=== PATIENT | male | born 1975 | race American Indian/Alaskan Native ===

== ENCOUNTER 2018-12-23 12:28 | Emergency (ER) | payer OTHER ==
[2018-12-23] MEDS ORDERED: hydrALAZINE 20 MG/1 ML INJ IV ONE (14:06)
--- NOTE | 2018-12-23 14:07 | Emergency Department Report ---
ED General Adult HPI - General Chief complaint: High BP Stated complaint: BP HIGH Time Seen by Provider: 12/23/18 14:06 Source: patient Mode of arrival: Ambulatory Limitations: No Limitations - History of Present Illness Initial comments: 43 yo AA male comes to ER today p getting a wellness exam for insurance today- because his BP is elevated. He is off his meds due to not having MD. At one time he was on losartan but when drug recalled his MD took him off it. Then he was lost to follow up with PCP. Pt has cardiology appnt on Wednesday. Denies cp, sob or headache. He is here with assistance of his . He is also off his DM meds. labs noted as ordered in triage. -: Gradual Treatments Prior to Arrival: none - Related Data Previous Rx's Medication Instructions Recorded Last Taken Type Glimepiride [Amaryl] 4 mg PO QDDIAB #30 tablet 09/30/15 Unknown Rx Insulin Glargine,Hum.rec.anlog 15 units SQ QHS #1 pen 09/30/15 Unknown Rx [Lantus Solostar] Linagliptin [Tradjenta] 5 mg PO QDAY #30 tablet 09/30/15 Unknown Rx Pen Needle, Diabetic [Pen Needle] 1 each MC DAILY #30 dis.needle 09/30/15 Unknown Rx metFORMIN XR [Glucophage XR] 1,000 mg PO QDDIAB #60 tablet 09/30/15 Unknown Rx hydroCHLOROthiazide [HCTZ] 25 mg PO DAILY #30 tablet 12/23/18 Unknown Rx Allergies Allergy/AdvReac Type Severity Reaction Status Date / Time No Known Allergies Allergy Unverified 09/27/15 12:50 ED Review of Systems ROS: Stated complaint: BP HIGH Other details as noted in HPI Comment: All other systems reviewed and negative ED Past Medical Hx - Past Medical History Previous Medical History?: Yes Hx Hypertension: Yes Hx CVA: No Hx Heart Attack/AMI: No Hx Congestive Heart Failure: No Hx Diabetes: Yes (Newly diagnose) Hx Deep Vein Thrombosis: No Hx Pulmonary Embolism: No Hx GERD: No Hx Liver Disease: No Hx Renal Disease: No Hx of Cancer: No Hx Sickle Cell Disease: No Hx Arthritis: No Hx Headaches / Migraines: No Hx Seizures: No Hx Kidney Stones: No Hx Psychiatric Treatment: No Hx Asthma: No Hx COPD: No Hx Tuberculosis: No Hx Dementia: No Hx HIV: No - Surgical History Past Surgical History?: No - Family History Family history: no significant - Social History Smoking Status: Never Smoker Substance Use Type: None - Medications Home Medications: Home Medications Medication Instructions Recorded Confirmed Last Taken Type Glimepiride [Amaryl] 4 mg PO QDDIAB #30 tablet 09/30/15 Unknown Rx Insulin Glargine,Hum.rec.anlog 15 units SQ QHS #1 pen 09/30/15 Unknown Rx [Lantus Solostar] Linagliptin [Tradjenta] 5 mg PO QDAY #30 tablet 09/30/15 Unknown Rx Pen Needle, Diabetic [Pen Needle] 1 each MC DAILY #30 dis.needle 09/30/15 Unknown Rx metFORMIN XR [Glucophage XR] 1,000 mg PO QDDIAB #60 tablet 09/30/15 Unknown Rx hydroCHLOROthiazide [HCTZ] 25 mg PO DAILY #30 tablet 12/23/18 Unknown Rx ED Physical Exam - General Limitations: No Limitations General appearance: alert, in no apparent distress - Head Head exam: Present: atraumatic, normocephalic - Eye Eye exam: Present: normal appearance - ENT ENT exam: Present: mucous membranes moist - Neck Neck exam: Present: normal inspection - Respiratory Respiratory exam: Present: normal lung sounds bilaterally. Absent: respiratory distress - Cardiovascular Cardiovascular Exam: Present: regular rate, normal rhythm. Absent: systolic murmur, diastolic murmur, rubs, gallop - GI/Abdominal GI/Abdominal exam: Present: soft, normal bowel sounds - Rectal Rectal exam: Present: deferred - Extremities Exam Extremities exam: Present: normal inspection - Back Exam Back exam: Present: normal inspection - Neurological Exam Neurological exam: Present: alert, oriented X3 - Psychiatric Psychiatric exam: Present: normal affect, normal mood - Skin Skin exam: Present: warm, dry, intact, normal color. Absent: rash ED Course Vital Signs 12/23/18 12/23/18 12/23/18 12:56 14:26 14:29 Temperature 98.7 F Pulse Rate 86 86 83 Respiratory 18 18 Rate Blood Pressure 236/140 200/104 O2 Sat by Pulse 100 95 Oximetry 12/23/18 12/23/18 12/23/18 14:30 14:46 15:00 Temperature Pulse Rate 86 90 92 H Respiratory 14 17 22 Rate Blood Pressure 167/93 188/85 O2 Sat by Pulse 94 95 95 Oximetry 12/23/18 12/23/18 12/23/18 15:16 15:30 16:00 Temperature Pulse Rate Respiratory Rate Blood Pressure 158/80 158/80 164/82 O2 Sat by Pulse 94 93 92 Oximetry 12/23/18 12/23/18 12/23/18 16:30 17:00 17:53 Temperature Pulse Rate Respiratory Rate Blood Pressure 172/106 160/85 202/110 O2 Sat by Pulse 95 92 Oximetry ED Medical Decision Making - Lab Data Result diagrams: 12/23/18 14:55 12/23/18 14:55 - EKG Data EKG shows normal: sinus rhythm Rate: normal - EKG Data Interpretation: no acute changes - Radiology Data Radiology results: report reviewed, image reviewed - Medical Decision Making Labs 12/23/18 12/23/18 12/23/18 14:55 14:55 14:55 WBC 6.9 RBC 5.59 H Hgb 16.2 H Hct 47.6 H MCV 85 MCH 29 MCHC 34 RDW 14.6 Plt Count 210 Lymph % (Auto) 37.3 H [place] % (Auto) 8.9 H Eos % (Auto) 1.0 Baso % (Auto) 0.5 Lymph # 2.6 [place] # 0.6 Eos # 0.1 Baso # 0.0 Seg Neutrophils % 52.3 Seg Neutrophils # 3.6 D-Dimer 320.17 H Sodium 144 Potassium 4.0 Chloride 105.2 Carbon Dioxide 23 Anion Gap 20 BUN 15 Creatinine 1.2 Estimated GFR > 60 BUN/Creatinine Ratio 13 Glucose 94 Calcium 9.3 Total Bilirubin 0.80 AST 42 H ALT 42 Alkaline Phosphatase 107 Troponin T < 0.010 Total Protein 7.5 Albumin 3.8 L Albumin/Globulin Ratio 1.0 Vital Signs 12/23/18 12/23/18 12/23/18 12:56 14:26 14:29 Temperature 98.7 F Pulse Rate 86 86 83 Respiratory 18 18 Rate Blood Pressure 236/140 200/104 O2 Sat by Pulse 100 95 Oximetry 12/23/18 12/23/18 12/23/18 14:30 14:46 15:00 Temperature Pulse Rate 86 90 92 H Respiratory 14 17 22 Rate Blood Pressure 167/93 188/85 O2 Sat by Pulse 94 95 95 Oximetry 12/23/18 12/23/18 12/23/18 15:16 15:30 16:00 Temperature Pulse Rate Respiratory Rate Blood Pressure 158/80 158/80 164/82 O2 Sat by Pulse 94 93 92 Oximetry 12/23/18 16:30 Temperature Pulse Rate Respiratory Rate Blood Pressure 172/106 O2 Sat by Pulse 95 Oximetry LABS NOTED HYDRAL IV WITH DEC IN BP; IT TRENDED BACK UP HCTZ PO CT NEG 12 LEAD NAP TROP NEG PT HAS CARDS APPNT WEDNESDAY PT WILL BE DC HOME WITH DC PLAN OF CARE AND FOLLOW UP. Critical care attestation.: If time is entered above; I have spent that time in minutes in the direct care of this critically ill patient, excluding procedure time. ED Disposition Clinical Impression: HTN (hypertension), Morbid obesity, Non-adherence to medical treatment, Diabetes mellitus Disposition: DC-01 TO HOME OR SELFCARE Is pt being admited?: No Does the pt Need Aspirin: No Condition: Stable Instructions: Hypertension (ED) Additional Instructions: TAKE MEDS ORDERED TODAY LOW FAT AND LOW SALT DIET; LIMITED CARBS DUE TO DM HYDRATE WELL WITH WATER FOLLOW UP WITH HEART MD PLANNED AND ALSO PCP- REFERRAL BELOW LET THEM KNOW YOU WERE HERE AND THEY CAN GET YOUR LAB WORK ACTIVITY TOLERATED Prescriptions: hydroCHLOROthiazide [HCTZ] 25 mg PO DAILY #30 tablet Referrals: [facility] [Outside] - 3-5 Days Time of Disposition: 15:22
--- NOTE | 2018-12-23 15:15 | XRay Report ---
CHEST 1 VIEW INDICATION: Chest pain. COMPARISON: None FINDINGS: Support devices: None. Heart: Mild cardiomegaly. Lungs/Pleura: No acute air space or interstitial disease. Additional findings: None. IMPRESSION: Mild cardiomegaly. Lungs clear. Signer Name: Clemente Li Jr, MD Signed: 12/23/2018 3:11 PM Workstation Name: [id number]
[2018-12-23 15:16] LABS: Basophils % (Auto) 0.5 % (0.0-1.8); Eosinophils # (Auto) 0.1 K/mm3 (0.0-0.4); Hematocrit 47.6 % (35.5-45.6); Hemoglobin 16.2 gm/dl (11.8-15.2); Lymphocytes # (Auto) 2.6 K/mm3 (1.2-5.4); Lymphocytes % (Auto) 37.3 % (13.4-35.0); Mean Corpuscular HGB Conc 34 % (32-34); Mean Corpuscular Volume 85 fl (84-94); Monocytes # (Auto) 0.6 K/mm3 (0.0-0.8); Monocytes % (Auto) 8.9 % (0.0-7.3); Platelet Count 210 K/mm3 (140-440); Red Blood Count 5.59 M/mm3 (3.65-5.03); Red Cell Distribution Width 14.6 % (13.2-15.2)
[2018-12-23 16:06] LABS: Alanine Aminotransferase 42 units/L (7-56); Albumin 3.8 g/dL (3.9-5); BUN/Creatinine Ratio 13; Blood Urea Nitrogen 15 mg/dL (9-20); Calcium 9.3 mg/dL (8.4-10.2); Hemolysis Index 12
[2018-12-23] MEDS ORDERED: hydroCHLOROthiazide 25 MG TAB PO ONE (17:37)
--- NOTE | 2018-12-23 18:02 | Cat Scan Report ---
CTA CHEST WITH IV CONTRAST INDICATION / CLINICAL INFORMATION: CHEST PAIN WITH HTN. TECHNIQUE: Axial CT images were obtained through the chest after injection of 100 mL Omnipaque 350 IV contrast. 3 plane MIP and/or 3D reconstructions were produced. All CT scans at this location are performed usin g CT dose reduction for ALARA by means of automated exposure control. COMPARISON: Same-day chest radiograph FINDINGS: PULMONARY ARTERIES: No pulmonary emboli. THORACIC AORTA: No significant abnormality. HEART: No significant abnormality. CORONARY ARTERIES: No significant calcification. PLEURA: No pleural effusion. No pneumothorax. LYMPH NODES: No adenopathy. LUNGS: No acute air space or interstitial disease. UPPER ABDOMEN: The liver parenchyma is markedly hypoattenuating, suggesting fatty infiltration. SKELETAL STRUCTURES: No significant osseous abnormality. IMPRESSION: 1. No CT evidence for pulmonary embolism. 2. No acute finding. 3. Hepatic steatosis. Signer Name: Mark Kern MD Signed: 12/23/2018 5:58 PM Workstation Name: [id number]
[2018-12-23 18:03] VITALS: BP 202/110
== END 2018-12-23 18:05 | disposition home or self-care (01) ==
LOC: ED 12:28
DX: I10 Essential (primary) hypertension (principal); E66.01 Morbid (severe) obesity due to excess calories; Z68.41 Body mass index [BMI] 40.0-44.9, adult; E11.9 Type 2 diabetes mellitus without complications; Z79.4 Long term (current) use of insulin; Z79.84 Long term (current) use of oral hypoglycemic drugs; Z79.899 Other long term (current) drug therapy
CPT/HCPCS: 36415; 71045; 71275; 80053; 84484; 85025; 85379; 93005; 93010; 96374; 99284; J0360; Q9967